=== PATIENT | female | born 1970 | race Caucasian/White ===

== ENCOUNTER 2017-12-29 17:06 | Emergency (ER) | payer BC ==
[2017-12-29 17:31] LABS: Bilirubin Negative (Negative); Blood, Urine Negative (Negative); Clarity Slightly Cloudy (Clear); Glucose, Urine (Dipstick) Negative (Negative); Leukocyte Negative (Negative); Nitrite Positive (Negative); Protein, Urine (Dipstick) Trace mg/dL (Neg-Trace); Specific Gravity, Urine 1.025 (1.005-1.030); Urobilinogen 0.2 mg/dL (0.2-1.0); pH, Urine 5.5 (5.0-9.0)
[2017-12-29 17:34] LABS: RBC/HPF 0-3 HPF (0-3)
[2017-12-29 17:35] LABS: Bacteria/HPF 1+ HPF (None Seen); Hyaline Casts/LPF 0-3 HYALINE CAST LPF (0-3 Hyaline); WBC/HPF 0-3 HPF (0-3)
[2017-12-29 18:11] LABS: Band 7 % (5-11); Eosinophils 4 % (0-10); Hemoglobin 13.3 g/dL (12.0-16.0); Lymphocytes 20 % (21-51); MDiff Complete? YES; Mean Corpuscular HGB CONC 33.8 g/dL (32.0-36.0); Mean Corpuscular Hemoglobin 27.6 pg (27.0-31.0); Mean Corpuscular Volume 81.6 fL (78.0-98.0); Mean Platelet Volume 6.8 fL (7.4-10.4); Monocytes 4 % (0-10); Neutrophil 64 % (42-75); PLT Morphology Comment Appears Adequate; Platelet Count 180 thou/uL (130-400); RBC Distribution Width 11.5 % (11.5-14.5); Reactive Lymphocytes 1 % (0-10); Red Blood Cell (RBC) Count 4.82 mill/uL (4.20-5.40); White Blood Cell (WBC) Count 12.3 thou/uL (4.8-10.8)
[2017-12-29 18:16] LABS: Pregnancy Test - Urine (BHCG) Negative (Negative); Pregu Control Background? CLEAR/WHITE (CLR/WHITE); Pregu Control Bar Appear? YES (CONTROL BAR); Specific Gravity 1.025 (1.002-1.036)
[2017-12-29 18:17] LABS: ALT (SGPT) 11 U/L (8-55); AST (SGOT) 13 U/L (5-34); Alkaline Phosphatase 53 U/L (40-150); Anion Gap 16 mmol/L (10-20); BUN (Urea Nitrogen) 13 mg/dL (7.0-18.7); Bilirubin, Total 0.3 mg/dL (0.2-1.2); Calc. Creatinine Clearance 0 mL/min (70-130); Calcium 9.1 mg/dL (7.8-10.44); Carbon Dioxide 22 mmol/L (22-29); Chloride 104 mmol/L (98-107); Estimated GFR-MDRD 71; Globulin 3.1 g/dL (2.4-3.5); Glucose 116 mg/dL (70-105); Potassium 3.5 mmol/L (3.5-5.1); Protein, Total 7.1 g/dL (6.0-8.3); Sodium 138 mmol/L (136-145)
[2017-12-29] MEDS ORDERED: Ketorolac Tromethamine 30 MG/ML VIAL ONE (18:47)
[2017-12-29] MEDS ORDERED: Ondansetron HCl/PF 4 MG/2 ML Vial ONE (18:47)
--- NOTE | 2017-12-29 23:28 | CT ---
CT ABDOMEN AND PELVIS WITH CONTRAST: HISTORY: Abdominal pain. Urinary tract infection. COMPARISON: CT abdomen and pelvis from 2010. FINDINGS: The lung bases are clear. No pericardial effusion. No hydroureteronephrosis. No evidence for pyelonephritis. There is narrowing of the right renal art bhumi due to calcific plaque, approximately 50% to 60% stenosis, just after the ostia. No abnormal doug dder enhancement. The appendix is visualized and is normal. No free intraperitoneal gas or fluid. No dilated loops of large or small bowel. No acute osseous abnormality. IMPRESSION: 1. No acute inflammatory process of the abdomen or pelvis. 2. No evidence for pyelonephritis. 3. There is 50% to 60% narrowing of the right proximal renal artery, just out to the ostia, due to s oft plaque. 4. Normal appendix. POS: HOME
[2018-01-01 23:23] LABS: Chlamydia by PCR Not Detected (NotDetected); GC by PCR Not Detected (NotDetected)
== END 2017-12-29 20:34 | disposition home or self-care (01) ==
LOC: SCSER 17:06
DX: I70.1 Atherosclerosis of renal artery (principal); N39.0 Urinary tract infection, site not specified; E78.5 Hyperlipidemia, unspecified; I10 Essential (primary) hypertension; F32.9 Major depressive disorder, single episode, unspecified; Z79.899 Other long term (current) drug therapy
CPT/HCPCS: 36415; 74177; 80053; 81003; 81015; 81025; 85025; 87086; 87480; 87491; 87510; 87591; 87660; 96374; 96375; J1885; J2405